=== PATIENT | female | born 1985 | race Caucasian/White ===

== ENCOUNTER 2017-09-30 11:49 | Emergency (ER) | payer OTHER ==
[~2017-09-30] VITALS: Ht 160 cm; Wt 79.4 kg
--- NOTE | 2017-09-30 11:58 | NUR ---
PT IS IN ROOM #2A. DR CEDILLO EVALUATED THE PT.
[2017-09-30 12:50] LABS: CREATININE 0.7 mg/dL (0.6-1.3); POTASSIUM 3.6 mmol/L (3.5-5.1)
--- NOTE | 2017-09-30 13:14 | NUR ---
PT WAS D/C TO HOME. D/C INSTRUCTIONS GIVEN TO THE PT.
[2017-09-30 13:15] VITALS: BP 129/81
== END 2017-09-30 13:16 | disposition home or self-care (01) ==
LOC: ER 11:49
DX: I10 Essential (primary) hypertension (principal); J02.9 Acute pharyngitis, unspecified
CPT/HCPCS: 36415; 80048; 86403; 87070; 99284; A4663